=== PATIENT | female | born 1960 | race Caucasian/White ===

== ENCOUNTER 2023-09-27 16:56 | Emergency (ER) | payer OTHER, BC ==
[~2023-09-27] VITALS: Ht 167.6 cm; Wt 80.4 kg
[~2023-09-27 16:56] MED LIST: BUPROPION XL300 MG PO; CALCIUM PO; FISH OIL PO; GARLIC1 EACH PO; LISINOPRIL5 MG PO; LOVASTATIN40 MG PO; METFORMIN HCL500 MG PO; METOPROLOL TART25 MG PO; OMEPRAZOLE20 MG PO; VITAMIN D PO
[2023-09-27] MEDS ORDERED: OZEMPIC0.25 MG/02 SQ (17:27)
[2023-09-27] MEDS ORDERED: NORTRIPTYLINE H10 MG PO (17:27)
[2023-09-27] MEDS ORDERED: GABAPENTIN300 MG PO (17:27)
[2023-09-27] MEDS ORDERED: ATORVASTATIN CA40 MG PO (17:27)
[2023-09-27] MEDS ORDERED: LISINOPRIL30 MG PO (17:27)
[2023-09-27 18:25] VITALS: BP 148/97
== END 2023-09-27 18:25 | disposition home or self-care (01) ==
LOC: ED 16:56
DX: S20.214A Contusion of middle front wall of thorax, initial encounter (principal); I25.2 Old myocardial infarction; I10 Essential (primary) hypertension; Y04.2XXA Assault by strike against or bumped into by another person, initial encounter; Y92.512 Supermarket, store or market as the place of occurrence of the external cause; Z87.891 Personal history of nicotine dependence; Z95.5 Presence of coronary angioplasty implant and graft; Z88.8 Allergy status to other drugs, medicaments and biological substances; Z91.09 Other allergy status, other than to drugs and biological substances; Z79.899 Other long term (current) drug therapy
CPT/HCPCS: 71046; 99283-25; A9270